=== PATIENT | female | born 1995 | race Hispanic/Latino ===

== ENCOUNTER 2017-04-05 23:50 | Emergency (ER) | payer OTHER ==
[~2017-04-05] VITALS: Ht 160 cm; Wt 78.6 kg
[2017-04-06] MEDS ORDERED: LIDOCAINE 1% MDV 20ML VIAL As Ordered ONE (01:50)
[2017-04-06 02:29] VITALS: BP 112/62
--- NOTE | 2017-04-06 08:14 | REP ---
Right forearm: Two views. History: Question foreign body in the proximal forearm. Findings: There is no evidence of fracture or opaque foreign body. Impression: Negative right forearm radiographs. Signed by Nathan Roy MD 04/06/2017 08:49 A
== END 2017-04-06 02:51 | disposition home or self-care (01) ==
LOC: M ED 23:50
DX: S51.812A Laceration without foreign body of left forearm, initial encounter (principal); W25.XXXA Contact with sharp glass, initial encounter; Y92.018 Other place in single-family (private) house as the place of occurrence of the external cause; Y93.89 Activity, other specified; Y99.8 Other external cause status; Z88.1 Allergy status to other antibiotic agents; Z88.2 Allergy status to sulfonamides

== ENCOUNTER 2017-04-17 21:06 | Emergency (ER) | payer OTHER ==
[~2017-04-17] VITALS: Ht 160 cm; Wt 79.4 kg
[2017-04-17 21:15] VITALS: BP 126/88
== END 2017-04-17 22:47 | disposition home or self-care (01) ==
LOC: M ED 21:06
DX: Z48.00 Encounter for change or removal of nonsurgical wound dressing (principal)

== ENCOUNTER 2017-11-21 13:02 | Emergency (ER) | payer OTHER | END 2017-11-21 14:20 | disposition home or self-care (01) | LOC: M ED 13:02 | DX: H65.191 Other acute nonsuppurative otitis media, right ear (principal); Z88.1 Allergy status to other antibiotic agents; Z88.2 Allergy status to sulfonamides | CPT/HCPCS: 99282 ==